=== PATIENT | male | born 2000 | race Asian ===

== ENCOUNTER 2019-02-05 12:02 | Emergency (ER) | payer BC ==
--- NOTE | 2019-02-05 12:27 | ED ---
Psychiatric Complaint - HPI Summary HPI Summary: This pt is a 18 y/o male presenting [place] [facility] c/o depression and SI thoughts. Pt reports he has had nausea, vomiting, headache, blurry vision, and "general feeling of feeling down." He states he has been crying and has been experiencing anhedonia. He reports SI thoughts but denies SI plan. Pt notes he took an antacid with some relief. He has been trying to sleep off his symptoms. He did eat this morning a little bit. Denies hx of diagnosed anxiety or depression. - History Of Current Complaint Chief Complaint: EDMentalHealth Hx Obtained From: Patient Onset/Duration: Lasting Days, Still Present Timing: Days Severity Currently: Moderate Character: Depressed Aggravating Factor(s): Nothing Alleviating Factor(s): Nothing Associated Signs And Symptoms: Positive: Negative Related History: Negative For: Prior Psychiatric Issues Has Suicidal: Reports: Thoughts. Denies: With A Plan Has Homicidal: Denies: Thoughts, With A Plan - Allergies/Home Medications Allergies/Adverse Reactions: Allergies Allergy/AdvReac Type Severity Reaction Status Date / Time Penicillins AdvReac Hives Verified 02/05/19 12:05 Home Medications: Home Medications NK [No Home Medications Reported] 02/05/19 [History Confirmed 02/05/19] PMH/Surg Hx/FS Hx/Imm Hx Endocrine/Hematology History: Denies: Hx Diabetes Respiratory History: Denies: Hx Asthma Psychiatric History: Denies: Hx Anxiety, Hx Depression Infectious Disease History: No Infectious Disease History: Denies: Traveled Outside the [place] in Last 30 Days - Family History Known Family History: Negative: Cardiac Disease, Hypertension, Diabetes - Social History Alcohol Use: None Substance Use Type: Reports: None Smoking Status (MU): Never Smoked Tobacco Review of Systems Negative: Fever, Chills Positive: Blurred Vision Positive: Vomiting, Nausea Positive: Headache Psychological: Other - POSITIVE: SI thoughts, sad, crying Positive: Depressed. Negative: Other - NEGATIVE: SI plan All Other Systems Reviewed And Are Negative: Yes Physical Exam - Summary Physical Exam Summary: VITAL SIGNS: Reviewed. GENERAL: Patient is a well-developed and nourished male. Patient is not in any acute respiratory distress. HEAD AND FACE: No signs of trauma. No ecchymosis, hematomas or skull depressions. No sinus tenderness. EYES: PERRLA, EOMI x 2, No injected conjunctiva, no nystagmus. EARS: Hearing grossly intact. Ear canals and tympanic membranes are within normal limits. MOUTH: Oropharynx within normal limits. NECK: Supple, trachea is midline, no adenopathy, no JVD, no carotid bruit, no c- spine tenderness, neck with full ROM. CHEST: Symmetric, no tenderness at palpation LUNGS: Clear to auscultation bilaterally. No wheezing or crackles. CVS: Regular rate and rhythm, S1 and S2 present, no murmurs or gallops appreciated. ABDOMEN: Soft, non-tender. No signs of distention. No rebound, no guarding, and no masses palpated. Bowel sounds are normal. EXTREMITIES: FROM in all major joints, no edema, no cyanosis or clubbing. NEURO: Alert and oriented x 3. No acute neurological deficits. Speech is normal and follows commands. SKIN: Dry and warm PSYCH: sad affect, easily crying Triage Information Reviewed: Yes Vital Signs On Initial Exam: Initial Vitals Temp Pulse Resp BP Pulse Ox 98.5 F 74 16 155/87 96 02/05/19 12:03 02/05/19 12:03 02/05/19 12:03 02/05/19 12:03 02/05/19 12:03 Vital Signs Reviewed: Yes Diagnostics - Vital Signs Vital Signs Temp Pulse Resp BP Pulse Ox 02/05/19 12:03 98.5 F 74 16 155/87 96 - Laboratory Result Diagrams: 02/05/19 12:38 02/05/19 12:38 Lab Statement: Any lab studies that have been ordered have been reviewed, and results considered in the medical decision making process. Re-Evaluation - Re-Evaluation First Eval Re-Evaluation Time: 12:28 Comment: Pt is medically cleared. Course/Dx - Course Assessment/Plan: Pt is a 18 y/o male presenting to [facility] c/o depression and SI thoughts. Pt reports he has had nausea, vomiting, headache, blurry vision, and "general feeling of feeling down." He states he has been crying and has been experiencing anhedonia. He reports SI thoughts but denies SI plan. Pt notes he took an antacid with some relief. He has been trying to sleep off his symptoms. He did eat this morning a little bit. Denies hx of diagnosed anxiety or depression. Test results without any significant abnormalities. Pt was medically cleared. He is waiting for a MHE. He is hemodynamically stable, alert and oriented x3. Pt had a mental health evaluation and his case was reviewed by Dr. Santos, psychiatrist. Per mental health manager regulatory, Dr. Santos cleared the pt for discharge with dx unspecified depression. Pt will be returning home to [place] with his parents and will follow up with treatment there. - Differential Dx/Clinical Impression Provider Diagnosis: Depression Discharge - Sign-Out/Discharge Documenting (check all that apply): Patient Departure - Discharge home Patient Received Moderate/Deep Sedation with Procedure: No - Discharge Plan Condition: Stable Disposition: HOME Referrals: [facility] [Outside] - Attestation Statements Document Initiated by Scribe: Yes Documenting Scribe: Payal Gupta Provider For Whom Scribe is Documenting (Include Credential): Reji Campo MD Scribe Attestation: Payal Coe, scribed for Reji Campo MD on 02/05/19 at 1512. Status of Scribe Document: Ready
[2019-02-05] MEDS ORDERED: Famotidine TAB* 20 MG PO ONE (12:31)
[2019-02-05] MEDS ORDERED: Ondansetron ODT TAB* 4 MG SL PRN (12:31)
[2019-02-05 12:53] LABS: ABS Lymphocytes 1.8 10^3/ul (1.0-4.8); ABS Monocytes 0.4 10^3/ul (0-0.8); ABS Neutrophils 3.6 10^3/ul (1.5-7.7); Eosinophil % 0.6 %; Hematocrit 50 % (42-52); Hemoglobin 16.8 g/dL (14.0-18.0); Lymphocyte % 30.5 %; Mean Corpuscular HGB Conc 34 g/dL (31-36); Mean Corpuscular Hemoglobin 30 pg (27-31); Mean Corpuscular Volume 88 fL (80-94); Mean Platelet Volume 7.7 fL (7.4-10.4); Nucleated Red Blood Cells % 0.1; Platelet Count 230 10^3/uL (150-450); Red Blood Count 5.69 10^6 /uL (4.18-5.48); Red Cell Distribution Width 13 % (10-15); White Blood Count 5.9 10^3/uL (3.5-10.8)
[2019-02-05 12:58] LABS: Urine Appearance Cloudy; Urine Bilirubin Negative (Negative); Urine Blood Negative (Negative); Urine Color Yellow; Urine Glucose Negative (Negative); Urine Ketones Trace (Negative); Urine Nitrite Negative (Negative); Urine Protein Negative (Negative); Urine Specific Gravity 1.024 (1.010-1.030); Urine Urobilinogen Negative (Negative)
[2019-02-05 13:05] LABS: ALT 20 U/L (7-52); AST 23 U/L (13-39); Albumin 4.8 g/dL (3.2-5.2); Albumin/Globulin Ratio 1.7 (1-3); Alkaline Phosphatase 73 U/L (34-104); Anion Gap 8 mmol/L (2-11); BUN/Creatinine Ratio 12.1 (8-20); Blood Urea Nitrogen 12 mg/dL (6-24); CO2 Carbon Dioxide 29 mmol/L (22-32); Calcium 10.8 mg/dL (8.6-10.3); Chloride 101 mmol/L (101-111); EGFR African American 117.8 (>60); EGFR Non-African American 97.4 (>60); Globulin 2.9 g/dL (2-4); Glucose 100 mg/dL (70-100); Potassium 3.9 mmol/L (3.5-5.0); Sodium 138 mmol/L (135-145); Total Protein 7.7 g/dL (6.4-8.9)
[2019-02-05 13:13] LABS: Urine Benzodiazepine Screen None Detected (None Detect); Urine Opiates Screen None Detected (None Detect)
[2019-02-05 13:46] LABS: Acetaminophen < 15 mcg/mL; Alcohol < 10 mg/dL (<10); Salicylate < 2.50 mg/dL (<30)
[2019-02-05 14:00] LABS: TSH (Thyroid Stimulating Horm) 1.32 mcIU/mL (0.34-5.60)
[2019-02-05 15:53] VITALS: BP 120/85
== END 2019-02-05 15:52 | disposition home or self-care (01) ==
LOC: ED 12:02
DX: F32.9 Major depressive disorder, single episode, unspecified (principal)
CPT/HCPCS: 36415; 80053; 80307; 80320; 80329; 81003; 84443; 85025; 99285; A9270-GY; G0480